=== PATIENT | female | born 1975 | race Caucasian/White ===

== ENCOUNTER 2019-07-07 17:32 | Emergency (ER) | payer BC ==
[2019-07-07] MEDS ORDERED: HYDROmorphone 1 MG/ML Syringe IVPUSH ONE ×2 (17:42→18:11)
[2019-07-07] MEDS ORDERED: Ondansetron 4 MG/2 ML SDV IVPUSH ONE (17:42)
--- NOTE | 2019-07-07 17:42 | EDM.PDOC ---
ED HPI GENERAL MEDICAL PROBLEM - General Stated Complaint: AMBULANCE Time Seen by Provider: 07/07/19 17:34 - History of Present Illness INITIAL COMMENTS - FREE TEXT/NARRATIVE: HISTORY AND PHYSICAL: History of present illness: Patient is 43-year-old female with no significant past medical history presents status post fall in which patient sustained an acute injury to her right ankle on arrival she has an obvious fracture dislocation of her right ankle with a gross deformity she denies any head or neck pain or trauma denies any chest or abdominal pain or trauma denies other concern Review of systems: As per history of present illness and below otherwise all systems reviewed and negative. Past medical history: As per history of present illness and as reviewed below otherwise noncontributory. Surgical history: As per history of present illness and as reviewed below otherwise noncontributory. Social history: No reported history of drug or alcohol abuse. Family history: As per history of present illness and as reviewed below otherwise noncontributory. Physical exam: HEENT: Atraumatic, normocephalic, pupils reactive, negative for conjunctival pallor or scleral icterus, mucous membranes moist, throat clear, neck supple, nontender, trachea midline. Lungs: Clear to auscultation, breath sounds equal bilaterally, chest nontender. Heart: S1S2, regular, negative for clicks, rubs, or JVD. Abdomen: Soft, nondistended, nontender. Negative for masses or hepatosplenomegaly. Negative for costovertebral tenderness. Pelvis: Stable nontender. Genitourinary: Deferred. Rectal: Deferred. Extremities: Obvious fracture dislocation right ankle with tenting noted in region of lateral malleolus minor abrasion also noted that appears more related to an abrasion as opposed to a puncture Neuro: Awake, alert, oriented. Cranial nerves II through XII unremarkable. Cerebellum unremarkable. Motor and sensory unremarkable throughout. Exam nonfocal. Diagnostics: X-ray right ankle Therapeutics: Saline lock Dilaudid 1 mg IV Zofran 4 mg IV posterior mold Patient had repositioning and partial reduction with traction countertraction by myself she remains with good pulses CMS is normal Impression: #1 acute fracture dislocation right ankle Definitive disposition and diagnosis as appropriate pending reevaluation and review of above. - Related Data Allergies Allergy/AdvReac Type Severity Reaction Status Date / Time Sulfa (Sulfonamide Allergy Cannot Verified 11/07/17 10:41 Antibiotics) Remember ED ROS GENERAL - Review of Systems Review Of Systems: Comprehensive ROS is negative, except as noted in HPI. ED EXAM, GENERAL - Physical Exam Exam: See Below (See dictation) Departure - Departure Time of Disposition: 17:43 Disposition: DC/Tfer to Acute Hospital 02 Condition: Good Clinical Impression: Fracture dislocation of right ankle - Discharge Information
--- NOTE | 2019-07-07 18:22 | CR ---
Indication: Fall. Technique: Three views of the left ankle were obtained. Comparison: None Findings: A fracture of the medial malleolus is identified. Fracture of the distal tibia is identified. The tibia and fibular completely dislocated from the talus. These are dislocated approximately 1 shaft with lateral in relation to the talus. The talar dome appears to be intact. The medial aspect of the distal tibial fracture appears to be in stable position with the talus. The distal fracture fragment of the lateral malleolus is rotated 90 degrees. Impression: Distal tibial fibular fractures with dislocation. Dictated by Paloma Kruse MD @ Jul 07 2019 6:18PM Signed by Dr. Paloma Kruse @ Jul 07 2019 6:20PM
== END 2019-07-07 18:32 ==
LOC: MW.ED 17:32
DX: S82.302A Unspecified fracture of lower end of left tibia, initial encounter for closed fracture (principal); S82.832A Other fracture of upper and lower end of left fibula, initial encounter for closed fracture; Z88.2 Allergy status to sulfonamides; W10.9XXA Fall (on) (from) unspecified stairs and steps, initial encounter
CPT/HCPCS: 73610; 96374; 96375; 99284; J1170; J2405